=== PATIENT | male | born 1965 | race Hispanic/Latino ===

== ENCOUNTER 2019-10-02 10:40 | Observation (INO) | payer OTHER ==
[~2019-10-02] VITALS: Ht 170.2 cm; Wt 93.0 kg
[~2019-10-02 10:40] MED LIST: ATORVASTATIN CA20 MG PO; CARDIZEM CD180 MG PO; CLINDAMYCIN HC300 MG PO; CLOPIDOGREL75 MG PO; DIABETA5 MG PO; GLIPIZIDE ER5 MG PO; JANUVIA100 MG PO; LISINOPRIL10 MG PO; LORTAB 7.5-5001 EACH PO; LOSARTAN POTASS25 MG PO; OMEGA 3 FISH O1 EACH PO; SEPTRA DS TABL1 EACH PO; Z.0.GLIPIZIDE5 MG; Z.0.GLUCOPHAGE500 MG PO
[2019-10-02] MEDS ORDERED: ATROPINE SULFATE 1 MG/ML VIAL IV STA (11:10)
[2019-10-02] MEDS ORDERED: SODIUM CHLORIDE 0.9% 1000ML 1,000 ML IV STA (11:10)
[2019-10-02] MEDS ORDERED: ASPIRIN 81 MG CHEW TAB PO ONE (11:15)
[2019-10-02] MEDS ORDERED: ATROPINE SULFATE 1 MG/ML VIAL ONE (11:22)
[2019-10-02 11:24] LABS: BASOPHILS % 0.4 % (0.0-1.0); EOSINOPHILS # (AUTO) 0.2 (0.0-0.4); EOSINOPHILS % 2.7 % (0.0-6.0); HEMATOCRIT 35.2 % (38.2-49.6); HEMOGLOBIN 11.7 g/dL (14.0-18.0); LYMPHOCYTES # (AUTO) 2.2 (1.0-3.2); LYMPHOCYTES % 27.5 % (18.0-39.1); MEAN CORPUSCULAR HEMOGLOBIN 27.9 pg (28-32); MEAN CORPUSCULAR HGB CONC 33.2 g/dL (31-35); MONOCYTES # (AUTO) 0.7 (0.2-0.8); MONOCYTES % 9.3 % (4.4-11.3); NEUTROPHILS # (AUTO) 4.7 (2.1-6.9); NEUTROPHILS % 59.7 % (38.7-80.0); PLATELET COUNT 141 x10e3/uL (140-360); RED BLOOD COUNT 4.19 x10e6/uL (4.3-5.7); RED CELL DISTRIBUTION WIDTH 13.6 % (11.7-14.4)
[2019-10-02] MEDS ORDERED: CALCIUM GLUCONATE 10% INJ 4.65 MEQ in SODIUM CHLORIDE 0.9% 50ML 50 ML IV ONE (11:30)
[2019-10-02 11:34] LABS: INR 0.96; PROTHROMBIN TIME 13.3 seconds (11.9-14.5)
[2019-10-02 11:42] LABS: ALBUMIN 3.6 g/dL (3.5-5.0); CALCIUM 9.3 mg/dL (8.4-10.2); CREATININE, SERUM 2.02 mg/dL (0.72-1.25); MAGNESIUM 1.8 MG/DL (1.3-2.1)
[2019-10-02 11:49] LABS: CREATINE KINASE MB 3.1 ng/mL (0-5.0)
[2019-10-02] MEDS ORDERED: ATROPINE SULFATE 1 MG/ML VIAL IV ONE (12:15)
--- NOTE | 2019-10-02 13:03 | Diagnostic Imaging Report ---
EXAMINATION: CHEST SINGLE (PORTABLE) INDICATION: Vertigo, bradycardia, dizziness COMPARISON: None FINDINGS: LINES/TUBES:EKG leads overlie the chest. LUNGS:The lungs are well-inflated. No focal consolidation or pulmonary edema. PLEURA:No pleural effusion or pneumothorax. MEDIASTINUM:The cardiomediastinal silhouette appears normal in size and shape. BONES/SOFT TISSUES:No acute osseous injury. ABDOMEN:No free air under the diaphragm. IMPRESSION: No focal pneumonia or pulmonary edema. Signed by: Ysable Ny MD on 10/02/2019 1:00 PM
[2019-10-02] MEDS ORDERED: GLUCAGON FOR INJ 1 MG VIAL IV ONE (13:30)
--- NOTE | 2019-10-02 14:46 | Emergency Department Note ---
History of Present Illnes History of Present Illness Chief Complaint: General Medicine Complaints History of Present Illness This is a 53 year old male PATIENT IN FROM HOME WITH COMPLAINTS OF FEELING DIZZY, WEAK, AND SHORT OF BREATH X 3 DAYS; PATIENT DENIES COUGH, CONGESTION, NAUSEA, OR VOMITING. Historian: Patient Arrival Mode: Car Manager Mass Required: No Onset (how long ago): day(s) (3) Radiation: Reports non-radiation Severity: moderate Onset quality: gradual Progression: waxing and waning Chronicity: new Context: Reports recent illness Relieving factors: none Exacerbating factors: none Associated symptoms: Reports denies other symptoms Treatments prior to arrival: none Past Medical/Family History Physician Review I have reviewed the patient's past medical and family history. Any updates have been documented here. Past Medical History Recent Fever: No Clinical Suspicion of Infectio: No New/Unexplained Change in Ment: No Past Medical History: Hypertension, Diabetes, Hyperlipedemia Other Surgery: LEG SURGERY Social History Smoking Cessation: Former smoker Alcohol Use: None Any Illegal Drug Use: No TB Exposure/Symptoms: No Physically hurt or threatened: No Family History Family history of heart diseas: No Other Last Tetanus: utd Any Pre-Existing Lines (PICC,: No Is patient up to date on immun: Yes Last Flu: 2019 Last Pneumovax: UNKNOWN Review of Systems Review of Systems Constitutional: Reports as per HPI EENTM: Reports no symptoms Cardiovascular: Reports as per HPI Respiratory: Reports no symptoms Gastrointestinal: Reports no symptoms Genitourinary: Reports no symptoms Musculoskeletal: Reports no symptoms Integumentary: Reports no symptoms Neurological: Reports as per HPI Psychological: Reports no symptoms Endocrine: Reports no symptoms Hematological/Lymphatic: Reports no symptoms Physical Exam Related Data Allergies: Coded Allergies: No Known Allergies (Unverified , 12/23/16) Triage Vital Signs Vital Signs Date Time Temp Pulse Resp B/P (MAP) Pulse Ox O2 Delivery O2 Flow Rate FiO2 10/02/19 10:50 97.8 40 18 93/62 99 Vital signs reviewed: Yes Physical Exam CONSTITUTIONAL Constitutional: Present well-developed, Present well-nourished HENT HENT: Present normocephalic, Present atraumatic, Present oropharynx clear/moist, Present nose normal HENT L/R: Present left ext ear normal, Present right ext ear normal EYES Eyes: Reports PERRL, Reports conjunctivae normal NECK Neck: Present ROM normal PULMONARY Pulmonary: Present effort normal, Present breath sounds normal CARDIOVASCULAR Cardiovascular: Present regular rhythm, Present bradycardia GASTROINTESTINAL Abdominal: Present soft, Present nontender, Present bowel sounds normal GENITOURINARY Genitourinary: Present exam deferred SKIN Skin: Present warm, Present dry MUSCULOSKELETAL Musculoskeletal: Present ROM normal NEUROLOGICAL Neurological: Present alert, Present oriented x 3, Present no gross motor or sensory deficits PSYCHOLOGICAL Psychological: Present mood/affect normal, Present judgement normal Results Laboratory Result Diagram: 10/02/19 1100 10/02/19 1100 Laboratory Laboratory Tests Test 10/02/19 11:00 White Blood Count 7.81 x10e3/uL (4.8-10.8) Red Blood Count 4.19 x10e6/uL (4.3-5.7) Hemoglobin 11.7 g/dL (14.0-18.0) Hematocrit 35.2 % (38.2-49.6) Mean Corpuscular Volume 84.0 fL (81-99) Mean Corpuscular Hemoglobin 27.9 pg (28-32) Mean Corpuscular Hemoglobin Concent 33.2 g/dL (31-35) Red Cell Distribution Width 13.6 % (11.7-14.4) Platelet Count 141 x10e3/uL (140-360) Neutrophils (%) (Auto) 59.7 % (38.7-80.0) Lymphocytes (%) (Auto) 27.5 % (18.0-39.1) Monocytes (%) (Auto) 9.3 % (4.4-11.3) Eosinophils (%) (Auto) 2.7 % (0.0-6.0) Basophils (%) (Auto) 0.4 % (0.0-1.0) Neutrophils # (Auto) 4.7 (2.1-6.9) Lymphocytes # (Auto) 2.2 (1.0-3.2) Monocytes # (Auto) 0.7 (0.2-0.8) Eosinophils # (Auto) 0.2 (0.0-0.4) Basophils # (Auto) 0.0 (0.0-0.1) Absolute Immature Granulocyte (auto 0.03 x10e3/uL (0-0.1) Prothrombin Time 13.3 seconds (11.9-14.5) Prothromb Time International Ratio 0.96 Activated Partial Thromboplast Time 32.0 seconds (23.8-35.5) Sodium Level 134 mmol/L (136-145) Potassium Level 5.0 mmol/L (3.5-5.1) Chloride Level 101 mmol/L (98-107) Carbon Dioxide Level 23 mmol/L (22-29) Anion Gap 15.0 mmol/L (8-16) Blood Urea Nitrogen 23 mg/dL (7-26) Creatinine 2.02 mg/dL (0.72-1.25) Estimat Glomerular Filtration Rate 35 ML/MIN (60-) BUN/Creatinine Ratio 11 (6-25) Glucose Level 296 mg/dL (74-118) Calcium Level 9.3 mg/dL (8.4-10.2) Magnesium Level 1.8 MG/DL (1.3-2.1) Total Bilirubin 0.6 mg/dL (0.2-1.2) Aspartate Amino Transf (AST/SGOT) 22 IU/L (5-34) Alanine Aminotransferase (ALT/SGPT) 27 IU/L (0-55) Alkaline Phosphatase 104 IU/L (40-150) Creatine Kinase 156 IU/L (30-200) Creatine Kinase MB 3.10 ng/mL (0-5.0) Troponin I 0.010 ng/mL (0-0.300) B-Type Natriuretic Peptide 36.7 pg/mL (0-100) Total Protein 7.2 g/dL (6.5-8.1) Albumin 3.6 g/dL (3.5-5.0) Globulin 3.6 g/dL (2.3-3.5) Albumin/Globulin Ratio 1.0 (0.8-2.0) Imaging Imaging results reviewed: Yes Impressions Procedure: [id number] DX/CHEST SINGLE (PORTABLE) Exam Date: 10/02/19 Exam Time: 1230 REPORT STATUS: Signed EXAMINATION: CHEST SINGLE (PORTABLE) INDICATION: Vertigo, bradycardia, dizziness COMPARISON: None FINDINGS: LINES/TUBES:EKG leads overlie the chest. LUNGS:The lungs are well-inflated. No focal consolidation or pulmonary edema. PLEURA:No pleural effusion or pneumothorax. MEDIASTINUM:The cardiomediastinal silhouette appears normal in size and shape. BONES/SOFT TISSUES:No acute osseous injury. ABDOMEN:No free air under the diaphragm. IMPRESSION: No focal pneumonia or pulmonary edema. Signed by: Ysabel Ny MD on 10/02/2019 1:00 PM Procedures 12 Lead ECG Interpretation ECG Interpretation : ECG: ECG 1 Manager Mass: Interpreted by ED physician Date: Oct 02, 2019 Time: 10:58 Rhythm: sinus bradycardia (ACTUALLY JUNCTIONAL BRADYCARDIA) Rate: bradycardia (41) QRS axis: normal ST segments normal: Yes T waves normal: Yes Clinical Impression: abnormal ECG Assessment & Plan Medical Decision Making MDM SYMPTOMATIC PENNIE - CHECK CBC, CHEM'S, ECG, CARDIACS, CXR, UDS - R/O ELECTROLYTE ABNL, STEMI/NSTEMI, AV BLOCK Reassessment Reassessment PT INITIALLY SAID HE WAS ON DILTIAZEM - GIVEN CA-GLUCONATE IV AND ATROPINE 0.5 MG IV X 2 DOSES - VERY LITTLE CHANGE IN HR. WE THEN GOT HIS MED LIST AND HE ALSO TAKES METOPROLOL - I GAVE 2 MG GLUCAGON WHICH INCREASED HR TO 55-60 AND PT FELT BETTER. I ORDERED GLUCAGON DRIP BUT PHARMACIST CAME TO ER SAID ONLY 5 MG GLUCAGON LEFT IN HOUSE - PT STABLE Assessment & Plan Final Impression: (1) Symptomatic bradycardia (2) Junctional bradycardia Depart Disposition: ADMITTED Last Vital Signs Date Time Temp Pulse Resp B/P (MAP) Pulse Ox O2 Delivery O2 Flow Rate FiO2 10/02/19 13:32 46 15 138/72 99 10/02/19 11:41 96.7 Home Meds Reported Medications Losartan Potassium (LOSARTAN POTASSIUM) 25 Mg Tablet, 12.5 MG PO DAILY 03/01/17 Diltiazem Hcl (CARDIZEM CD) 180 Mg Cap.er.24h, 180 MG PO DAILY, CAP 03/01/17 Clopidogrel Bisulfate (CLOPIDOGREL) 75 Mg Tablet, 75 MG PO DAILY, #30 TAB 03/01/17 Glipizide (GLIPIZIDE ER) 5 Mg Tab.er.24, 10 MG PO BID 03/01/17 Atorvastatin Calcium (ATORVASTATIN CALCIUM) 20 Mg Tablet, 80 MG PO DAILY, #30 TAB 03/01/17 Sitagliptin Phosphate (JANUVIA) 100 Mg Tablet, 100 MG PO DAILY, #30 TAB 03/01/17 Medications in the ED Aspirin 81 mg PRN ONCE PO Last administered on 10/02/19at 11:26; Admin Dose 81 MG; Start 10/02/19 at 11:15; Stop 10/02/19 at 11:16; Status DC Sodium Chloride 1,000 ml @ 0 mls/hr Q0M STAT IV Last administered on 10/02/19at 11:25; Admin Dose 1,000 MLS/HR; Start 10/02/19 at 11:10; Stop 10/02/19 at 11:13; Status DC Calcium Gluconate 4.65 meq/Sodium Chloride 60 ml @ 60 mls/hr ONCE ONCE IV Last administered on 10/02/19at 11:36; Admin Dose 60 MLS/HR; Start 10/02/19 at 11:30; Stop 10/02/19 at 12:29; Status DC Atropine Sulfate 0.5 mg NOW STAT IV Last administered on 10/02/19at 11:35; Admin Dose 0.5 MG; Start 10/02/19 at 11:10; Stop 10/02/19 at 11:15; Status DC Atropine Sulfate 1 mg STK-MED ONCE .ROUTE ; Start 10/02/19 at 11:22; Stop 10/02/19 at 11:16; Status DC Atropine Sulfate 0.5 mg ONCE ONCE IV Last administered on 10/02/19at 12:10; Admin Dose 0.5 MG; Start 10/02/19 at 12:15; Stop 10/02/19 at 12:16; Status DC Glucagon 2 mg ONCE ONCE IV Last administered on 10/02/19at 13:31; Admin Dose 2 MG; Start 10/02/19 at 13:30; Stop 10/02/19 at 13:31; Status DC JASON MOCTEZUMA MD Oct 02, 2019 14:46
[2019-10-02] MEDS ORDERED: DEXTROSE 50% SYRINGE 50 ML IV PRN (15:00)
[2019-10-02] MEDS ORDERED: GLUCAGON FOR INJ 1 MG VIAL IV PRN (15:00)
--- NOTE | 2019-10-02 16:30 | NUR ---
Received patient from ER via wheelchair. Alert and oriented x4, denies pain and dizziness at this time. Ambulated independently to bed, steady gait observed. IV in place to left AC, patent. Oriented to room, bed, bed rails, call light and visiting policy. Verbalized understanding with return demonstration. In stable condition. Call light within reach.
[2019-10-02 16:33] VITALS: BP 110/66
[2019-10-02 16:35] VITALS: BP 110/66
[2019-10-02 17:09] VITALS: BP 110/66
[2019-10-02] MEDS: INSULIN LISPRO 100 UNIT/1 ML 3ML VIAL SQ SCH ×2 (17:45→21:00)
[2019-10-02] MEDS ORDERED: HYDRALAZINE HCL 20 MG/ML VIAL IV PRN (19:15)
[2019-10-02] MEDS ORDERED: ONDANSETRON HCL INJ 2MG/ML 2ML 2 MG/ML VIAL IV PRN (19:15)
[2019-10-02] MEDS ORDERED: ACETAMINOPHEN 325 MG TAB PO PRN (19:15)
--- NOTE | 2019-10-02 19:28 | NUR ---
Patient received sitting up in bed. AAO x 4. Patient had no complaints of pain. Respirations even and non labored. Safety measures implemented. Patient instructed to call for assistance when needed. Call light within reach.
[2019-10-02 19:40] LABS: CREATINE KINASE MB 2.7 ng/mL (0-5.0)
[2019-10-02 20:00] VITALS: BP 99/61
[2019-10-02] MEDS ORDERED: SODIUM CHLORIDE 0.9% 1000ML 1,000 ML IV ONE (20:30)
[2019-10-02 21:00] VITALS: BP 110/66
--- NOTE | 2019-10-02 21:08 | NUR ---
Cardiology Consult Dictation# [id number]
[2019-10-02] MEDS ORDERED: SODIUM CHLORIDE 0.9% 250ML 250 ML ONE (21:42)
[2019-10-02] MEDS: SODIUM CHLORIDE 0.9% 1000ML 1,000 ML IV SCH (23:00)
--- NOTE | 2019-10-02 23:03 | NUR ---
Urine specimen sent to lab for analysis.
--- NOTE | 2019-10-02 23:20 | NUR ---
Patient's heart rate records between 46 to 56. Patient is asymptomatic. Dr. Castro (covering for Dr. Giordano) notified. Per MD , continue to monitor patient as patient is asymptomatic.
--- NOTE | 2019-10-02 23:20 | Consultation ---
DATE OF CONSULTATION: 10/02/2019 Cardiology Consultation REQUESTING PHYSICIAN: Dr. Spence. REASON FOR CONSULTATION: Bradycardia. HISTORY OF PRESENT ILLNESS: This is a 53-year-old man with history of hypertension, hyperlipidemia, diabetes mellitus, and history of CVA, who presents with complaints of dizziness, fatigue, and shortness of breath of 2 days duration. He denies any chest pain, palpitations, or PND. He notices symptoms were worse and does endorse symptoms suggestive of orthopnea for the last 2 days. He therefore presented to the ER for further evaluation. In the ER, he was found to be bradycardic with heart rate in the 40s. He was administered calcium gluconate, atropine, and glucagon with improvement in his heart rate and symptoms. He was therefore admitted for further management. REVIEW OF SYSTEMS: Negative except as per HPI. PAST MEDICAL HISTORY: 1. Hypertension. 2. Hyperlipidemia. 3. Diabetes mellitus. 4. Non-obstructive coronary artery disease. 5. History of CVA in 2017. PAST SURGICAL HISTORY: I and D. ALLERGIES: PLEASE SEE EMR. MEDICATIONS: Please see medication list. SOCIAL HISTORY: No tobacco, alcohol, or illicit drugs. FAMILY HISTORY: Pertinent for father with myocardial infarction. PHYSICAL EXAMINATION: VITAL SIGNS: Temperature 97.6 degrees, pulse 38, respiratory rate 20, blood pressure 110/66, and oxygen saturation 100% on room air. GENERAL: Well-developed, well-nourished man, in no acute distress. HEENT: Normocephalic and atraumatic. Pupils are equal. No scleral icterus. NECK: Supple. No thyroid or cervical lymphadenopathy. No carotid bruits. LUNGS: Clear to auscultation bilaterally. No wheezes or crackles. CARDIOVASCULAR: Bradycardic. Regular. No murmur. Normal S1 and S2. ABDOMEN: Soft and nontender. EXTREMITIES: No edema. NEUROLOGIC: Nonfocal exam. LABORATORY DATA: Sodium 134, potassium 5, chloride 101, CO2 23, BUN 23, and creatinine 2.02. Troponin 0.004. BNP 36.7. TSH 3.461. WBC 7.81, hemoglobin 11.7, hematocrit 35.2, and platelets 141. EKG, junctional bradycardia. Chest x-ray, no focal pneumonia or pulmonary edema. IMPRESSION: 1. Symptomatic bradycardia. 2. Acute kidney injury. 3. Moderate coronary artery disease. 4. Hypertension. 5. Hyperlipidemia. 6. Diabetes mellitus. 7. History of cerebrovascular accident. RECOMMENDATIONS: Hold all AV kourtney blocking agents. Trend troponin to rule out myocardial infarction. Continue current cardiac medications. Monitor the patient closely on telemetry. Obtain echocardiogram. If heart rate improves with holding calcium channel blockers and beta blockers, he may be discharged home for outpatient monitoring tech and ischemic evaluation as long as troponin remains negative. Further recommendations based on the patient's clinical course. Thank you for this consult. We will continue to follow. Teresa Moe MD ABS/MODL /[id number]
[2019-10-02 23:25] LABS: BILIRUBIN,URINE NEGATIVE (NEGATIVE); CLARITY,URINE CLOUDY (CLEAR); COLOR,URINE YELLOW (YELLOW); KETONES,URINE NEGATIVE (NEGATIVE); LEUKOCYTE ESTERASE ,URINE NEGATIVE (NEGATIVE); NITRITE,URINE NEGATIVE (NEGATIVE); PROTEIN,URINE DIPSTICK NEGATIVE (NEGATIVE); URINE UROBILINOGEN 0.2 mg/dL (0.2 - 1)
[2019-10-02 23:26] LABS: AMPHETAMINES SCREEN,URINE NEGATIVE (NEGATIVE); BENZODIAZEPINES SCREEN,URINE NEGATIVE (NEGATIVE); PHENCYCLIDINE SCREEN,URINE NEGATIVE (NEGATIVE)
[2019-10-02 23:48] LABS: BACTERIA,URINE MODERATE /HPF; EPITHELIAL CELLS,URINE FEW /LPF; MUCUS,URINE MANY (RARE); WBC,URINE (MAN) 0-5 /HPF (0-5)
[2019-10-03] VITALS (7 sets, daily range): BP systolic 119–150; BP diastolic 63–112
--- NOTE | 2019-10-03 02:30 | NUR ---
Blood specimen sent to lab for analysis of cardiac enzymes.
[2019-10-03 03:55] LABS: CREATINE KINASE MB 2.4 ng/mL (0-5.0)
[2019-10-03 06:10] LABS: BASOPHILS % 0.3 % (0.0-1.0); EOSINOPHILS # (AUTO) 0.2 (0.0-0.4); EOSINOPHILS % 3.5 % (0.0-6.0); HEMATOCRIT 33.5 % (38.2-49.6); HEMOGLOBIN 11.2 g/dL (14.0-18.0); LYMPHOCYTES # (AUTO) 2.3 (1.0-3.2); LYMPHOCYTES % 35.4 % (18.0-39.1); MEAN CORPUSCULAR HEMOGLOBIN 28.2 pg (28-32); MEAN CORPUSCULAR HGB CONC 33.4 g/dL (31-35); MEAN CORPUSCULAR VOLUME 84.4 fL (81-99); MONOCYTES # (AUTO) 0.5 (0.2-0.8); MONOCYTES % 7.4 % (4.4-11.3); NEUTROPHILS # (AUTO) 3.5 (2.1-6.9); NEUTROPHILS % 53.1 % (38.7-80.0); PLATELET COUNT 127 x10e3/uL (140-360); RED BLOOD COUNT 3.97 x10e6/uL (4.3-5.7); RED CELL DISTRIBUTION WIDTH 13.4 % (11.7-14.4)
[2019-10-03 06:22] LABS: CREATINE KINASE MB 2.4 ng/mL (0-5.0)
[2019-10-03 06:43] LABS: ALANINE AMINOTRANSFERASE 21 IU/L (0-55); ALBUMIN 3.3 g/dL (3.5-5.0); ALKALINE PHOSPHATASE 85 IU/L (40-150); ANION GAP 10.5 mmol/L (8-16); BLOOD UREA NITROGEN 17 mg/dL (7-26); BUN/CREATININE RATIO 15 (6-25); CALCIUM 8.4 mg/dL (8.4-10.2); CARBON DIOXIDE 25 mmol/L (22-29); CHLORIDE 106 mmol/L (98-107); CHOL/HDL RATIO 3.3 (3.9-4.7); CHOLESTEROL 80 MD/DL (0-199); CREATININE, SERUM 1.16 mg/dL (0.72-1.25); EST GLOMERULAR FILTRATION RATE > 60 ML/MIN (60-); GLUCOSE 133 mg/dL (74-118); HDL CHOLESTEROL 24 MG/DL (40-60); LDL CHOLESTEROL 36 MG/DL (60-130); SODIUM 138 mmol/L (136-145); TRIGLYCERIDES 101 MG/DL (0-149)
--- NOTE | 2019-10-03 06:55 | NUR ---
Shift report given to oncoming nurse.
[2019-10-03 07:19] LABS: POTASSIUM 3.5 mmol/L (3.5-5.1)
[2019-10-03] MEDS: INSULIN LISPRO 100 UNIT/1 ML 3ML VIAL SQ SCH ×3 (07:30→16:30)
[2019-10-03] MEDS ORDERED: ASPIRIN 81 MG ENTERIC COATED PO SCH (09:00)
[2019-10-03] MEDS ORDERED: ATORVASTATIN 20 MG TAB PO SCH (09:00)
[2019-10-03] MEDS ORDERED: CLOPIDOGREL BISULFATE 75 MG TAB PO SCH (09:00)
[2019-10-03] MEDS: FAMOTIDINE 20 MG TAB PO SCH ×2 (09:17→18:45)
--- NOTE | 2019-10-03 09:57 | NUR ---
PATIENT AMBULATING INSIDE ROOM, NO C/O DIZZY OR CHEST PAIN, ON TELEMETRY, KEEP MONITORING
[2019-10-03] MEDS: SODIUM CHLORIDE 0.9% 1000ML 1,000 ML IV SCH (11:21)
[2019-10-03] MEDS ORDERED: ASPIRIN EC81 MG PO (19:43)
--- NOTE | 2019-10-03 21:03 | NUR ---
Patient discharged home via private auto. Patient given discharge instructions and verbalized understanding. IV in left arm removed with tip intact. Telemetry leads removed. Patient in stable condition. Vital signs WNL.
--- NOTE | 2019-10-04 02:47 | Discharge Summary ---
PRIMARY CARE PHYSICIAN: Jaquan Chavis. CONSULTING PHYSICIAN: He Giordano MD, with Cardiology. CHIEF COMPLAINT: Dizziness and shortness of breath. HISTORY OF PRESENT ILLNESS: The patient is a 53-year-old male with 3-day history of feeling dizzy, weak and short of breath. He was bradycardic and hypotensive in triage. He denied having any syncope. He was seen in room 211, in no acute distress yesterday, starting to feel better. PAST MEDICAL HISTORY: Includes a subacute ischemic stroke in the left basal ganglia in 2017, hypertension, diabetes mellitus, hyperlipidemia, cellulitis of the trunk with I and D on 02/02/2013, cellulitis and abscess of the left leg. Of note, in December of 2016, he had a carotid Doppler ultrasound, which revealed elevated velocities in the right external carotid artery with 50 to 70% stenosis of the left carotid bulb and 50 to 69% stenosis of the left internal carotid artery. PAST SURGICAL HISTORY: Includes the aforementioned I and D of the back abscess on 02/02/2013, left leg surgery, specifically an I and D of abscess of the lateral leg on 03/02/2017. He had a left heart catheterization with noted ejection fraction of 60%. FAMILY HISTORY: Father had diabetes mellitus, [place] and stent. SOCIAL HISTORY: The patient is , with children. He is a of the [employer]. He smoked in 1985, but quit. He drank a 12-pack beer on weekends, 2-1/2 years ago, but at that time, stopped drinking. Denies any history of illicit drugs. ALLERGIES: NO KNOWN ALLERGIES. ADMITTING DIAGNOSES: 1. Symptomatic junctional bradycardia. 2. Acute kidney injury. 3. Uncontrolled type 2 diabetes mellitus. 4. Controlled hypertension. 5. Carotid artery stenosis as evidenced by 12/2016 bilateral carotid Doppler ultrasound results. 6. Hyperlipidemia. 7. History of cerebrovascular accident in 2017. DISCHARGE DIAGNOSES: 1. Symptomatic junctional bradycardia. 2. Acute kidney injury. 3. Uncontrolled type 2 diabetes mellitus. 4. Controlled hypertension. 5. Carotid artery stenosis as evidenced by 12/2016 bilateral carotid Doppler ultrasound results. 6. Hyperlipidemia. 7. History of cerebrovascular accident in 2017. The patient's bilateral carotid Doppler ultrasound done 10/02 showed no evidence of any significant carotid stenosis. His 12-lead EKG had shown junctional bradycardia with heart rate of 41. Telemetry had shown junctional rhythm with PACs. On admission, temperature 97.8, heart rate 40, respirations 18, blood pressure 93/62, pulse oximetry 99%. The lowest documented heart rate that I see is 37 beats per minute, which was on 10/01 at 16:18 p.m. Most recently documented vital signs include temperature 97.8, heart rate 63, respirations 19, blood pressure 150/70, oxygen saturation 100% on room air. On admission, WBCs 7.1, hemoglobin 11.7, hematocrit 35.2, platelets 141. Sodium 134, potassium 5.0, chloride 101, CO2 23, anion gap 15, BUN 23, creatinine 2.02, estimated GFR 35, glucose 296, calcium 9.3, magnesium 1.8, total bilirubin 0.6, AST 22, ALT 27, alkaline phosphatase 104. Cardiac enzymes were within normal limits. B-type natriuretic peptide 36.7. He had 4 sets of cardiac biomarkers that were within normal limits. TSH 3.461. Fingerstick blood glucose levels in generally 200, today is blood sugar 203. Hemoglobin A1c 10.8% emphasizing his uncontrolled diabetes. Potassium improved from 5.0 to 3.5. Urinalysis was negative yesterday. UDS on 10/01 showed positive for methadone screen. Coronavirus collected on 10/01 at 15:37 in the afternoon remains pending. Preliminary urine culture results are in progress, re-incubation required. However, the UA was negative. Chest x-ray done on 10/01 was negative. No focal pneumonia or pulmonary edema. Today, his labs show significant improvement. WBC 6.5, hemoglobin 11.2, hematocrit 33.5, platelets 127. Sodium 138, potassium 3.5, chloride 106, CO2 of 25, anion gap 10.5, BUN 17, creatinine 1.16, estimated GFR greater than 60, glucose 133. His echocardiogram done on 10/02 showed mild concentric left ventricular hypertrophy. Left ventricular ejection fraction 71%. Diastolic filling pattern, normal for the age. Per Jose Ramon, Dr. Ahmadi told him to hold diltiazem and metoprolol. Home medications listed include diltiazem and losartan. I am instructed the patient to hold any or all of these diltiazem, metoprolol and losartan. He can continue his current home medications. Prescription provided for aspirin 81 mg daily. Continue on a diabetic diet. He no longer needs renal diabetic diet. His kidney function has significantly improved. His heart rate has improved. Activity level as tolerated. Follow up with PCP Dr. Jaquan Chavis in 1-2 weeks. Follow up with Dr. Giordano as directed. Dictated by Peter Abreu, [employer] MD TABAT[facility]/MODL /[id number]
== END 2019-10-03 21:02 | disposition home or self-care (01) ==
LOC: ER 12:06 → ERHOLD 14:46 → MED/SURG2 16:28
PROVIDERS: ADMIT Internal Medicine; ATTEND Internal Medicine
DX: R00.1 Bradycardia, unspecified (principal); I10 Essential (primary) hypertension; E11.9 Type 2 diabetes mellitus without complications; E78.5 Hyperlipidemia, unspecified; Z87.891 Personal history of nicotine dependence; N17.9 Acute kidney failure, unspecified; I25.10 Atherosclerotic heart disease of native coronary artery without angina pectoris; Z86.73 Personal history of transient ischemic attack (TIA), and cerebral infarction without residual deficits; I65.23 Occlusion and stenosis of bilateral carotid arteries; Z79.82 Long term (current) use of aspirin; Z79.84 Long term (current) use of oral hypoglycemic drugs
CPT/HCPCS: 36415 ×2; 71045; 80053 ×2; 80061; 80307; 81001; 82550 ×2; 82553 ×2; 82948 ×2; 83036; 83735; 83880; 84443; 84484 ×2; 85025 ×2; 85610; 85730; 87086; 87635; 93005; 93306; 99284; G0378 ×2; J0461; J0610; J1610; J7030 ×2; J7050